=== PATIENT | female | born 1980 | race Native Hawaiian/Other Pacific Islander ===

== ENCOUNTER 2022-05-22 16:54 | Emergency (ER) | payer OTHER ==
[~2022-05-22] VITALS: Ht 162.6 cm; Wt 53.1 kg
[2022-05-22 17:00] VITALS: TEMP 97.5
[2022-05-22 17:30] VITALS: BP 138/68
== END 2022-05-22 17:43 | disposition home or self-care (01) ==
LOC: ED 16:54
DX: M79.672 Pain in left foot (principal)
CPT/HCPCS: 99282